=== PATIENT | male | born 1960 | race Two or more races ===

== ENCOUNTER 2020-04-08 13:17 | Emergency (ER) | payer OTHER ==
[~2020-04-08] VITALS: Ht 157.5 cm; Wt 72.7 kg
[2020-04-08 13:19] VITALS: BP 143/65
[2020-04-08 13:43] LABS: GLUCOSE,POINT OF CARE 143 MG/DL (70-110)
== END 2020-04-08 14:39 | disposition home or self-care (01) ==
LOC: EMS 13:17
DX: R06.02 Shortness of breath (principal); Z53.21 Procedure and treatment not carried out due to patient leaving prior to being seen by health care provider